=== PATIENT | male | born 1940 | race Caucasian/White ===

== ENCOUNTER 2019-09-24 19:44 | Observation (INO) ==
[2019-09-24 20:51] LABS: Basophils % 0.5 %; Eosinophils # 0.1 K/mcL (0.0-0.6); Eosinophils % 0.8 %; Hematocrit 26.9 % (37.5-50.1); Hemoglobin 9.1 g/dL (12.9-16.9); Immature Granulocytes % 0.8 % (0-4); Lymphocytes % 12.3 %; Mean Corpuscular HGB Conc 33.8 g/dL (31.6-35.5); Mean Corpuscular Hemoglobin 31.6 pg (28.0-33.3); Mean Corpuscular Volume 93.4 fL (83.0-100.0); Mean Platelet Volume 9.7 fL (9.4-12.4); Monocytes # 0.8 K/mcL (0.0-1.3); Monocytes % 10.3 %; Platelet Count 282 K/mcL (140-400); Red Blood Count 2.88 M/mcL (4.19-5.50); Red Cell Distribution Width 14.8 % (11.5-14.5); Segmented Neutrophils % 75.3 %; White Blood Count 7.9 K/mcL (4.3-11.1)
[2019-09-24 21:01] LABS: INR 1.9; Prothrombin Time 21.6 Seconds (9.4-12.1)
[2019-09-24 21:04] LABS: Activated Partial Thrombo Time 34.9 Seconds (26.0-36.0)
[2019-09-24 21:11] LABS: Alanine Aminotransferase 14 Units/L (7-52); Albumin 3.6 g/dL (3.5-5.7); Albumin/Globulin Ratio 1.4 (1.1-2.2); Alkaline Phosphatase 186 Units/L (34-104); Aspartate Amino Transferase 19 Units/L (13-39); BUN/Creatinine Ratio 15 (6-26); Bilirubin,Total 0.6 mg/dL (0.3-1.0); Blood Urea Nitrogen 47 mg/dL (8-23); Calcium 9.8 mg/dL (8.6-10.3); Carbon Dioxide 20 mEq/L (23-29); Chloride 98 mEq/L (98-107); Globulin 2.6 g/dL (2.4-3.5); Glucose 166 mg/dL (70-105); Osmolality,Calculated 282 (280-300); Potassium 5.4 mEq/L (3.5-5.1); Sodium 128 mEq/L (136-145); Total Protein 6.2 g/dL (6.4-8.9); Troponin I < 0.03 ng/mL (< 0.04); eGFR For African Americans 23 (> 60); eGFR For Non-African Americans 19 (> 60)
[2019-09-25] MEDS ORDERED: Naloxone 0.4 MG/ML INJ IVP PRN (00:58)
[2019-09-25] MEDS ORDERED: 0.9 % Sodium Chloride 500 ML IVC ONE ×2 (01:01→03:50)
[2019-09-25] MEDS: 0.9 % Sodium Chloride 1,000 ML IVC SCH (01:44)
[2019-09-25 02:02] LABS: Basophils # 0.1 K/mcL (0.0-0.2); Basophils % 0.7 %; Eosinophils # 0.1 K/mcL (0.0-0.6); Eosinophils % 1.1 %; Hematocrit 26.5 % (37.5-50.1); Hemoglobin 8.8 g/dL (12.9-16.9); Lymphocytes % 12.7 %; Mean Corpuscular HGB Conc 33.2 g/dL (31.6-35.5); Mean Corpuscular Hemoglobin 31.1 pg (28.0-33.3); Mean Corpuscular Volume 93.6 fL (83.0-100.0); Mean Platelet Volume 9.7 fL (9.4-12.4); Monocytes # 0.9 K/mcL (0.0-1.3); Monocytes % 11.5 %; Neutrophils # 5.9 K/mcL (1.6-8.9); Platelet Count 263 K/mcL (140-400); Red Blood Count 2.83 M/mcL (4.19-5.50); Red Cell Distribution Width 14.7 % (11.5-14.5)
[2019-09-25 02:21] LABS: Albumin 3.4 g/dL (3.5-5.7); Albumin/Globulin Ratio 1.3 (1.1-2.2); Bilirubin,Total 0.5 mg/dL (0.3-1.0); Calcium 9.4 mg/dL (8.6-10.3); Globulin 2.6 g/dL (2.4-3.5); Potassium 5.3 mEq/L (3.5-5.1)
[2019-09-25] MEDS ORDERED: Dextrose Gel 15 GM/37.5 ML TUBE PO PRN ×2 (03:17)
[2019-09-25] MEDS ORDERED: D5% in Water 1,000 ML IVC PRN (03:17)
[2019-09-25] MEDS ORDERED: *HR* Dextrose 50 % in Water (Vial) 50 ML VIAL IVP PRN (03:17)
[2019-09-25] MEDS ORDERED: *HR* OxyCODONE Immed Rel 5 MG TABLET PO PRN (03:18)
[2019-09-25] MEDS ORDERED: Ondansetron ODT 4 MG TAB.RAPDIS SL PRN (03:18)
[2019-09-25 04:41] LABS: Bilirubin,Urine Negative (Negative); Blood,Urine Negative (Negative); Clarity,Urine Clear (Clear); Color,Urine Light-Yellow (Yellow); Glucose,Urine (UA) Normal (Normal); Ketones,Urine Negative (Negative); Leukocyte Esterase,Urine Negative (Negative); Mucus,Urine Few per lpf (None-Few); Nitrite,Urine Negative (Negative); PH,Urine 5.5 pH Units (5.0-8.0); Protein,Urine 30 mg/dL (Neg-Trace); RBC,Urine 0-3 per hpf (0-3); Specific Gravity,Urine 1.012 (1.010-1.025); Squamous Epithelial Cell,Urine Few per hpf (None-Few); Urobilinogen,Urine Normal (Normal); WBC,Urine 15-30 per hpf (0-3)
[2019-09-25] MEDS ORDERED: *HR* Rivaroxaban 10 MG TABLET PO SCH (09:00)
[2019-09-25] MEDS: Insulin LISPRO 300 UNITS/3 ML VIAL SQ SCH ×4 (09:52→20:56)
[2019-09-25] MEDS: Aspirin Enteric Coated 81 MG Tablet PO SCH (09:52)
[2019-09-25] MEDS: amLODIPine 5 MG TABLET PO SCH (09:52)
[2019-09-25] MEDS: Albumin 25% 25gram/100mL 25 GM/100 ML IV.SOLN IVPB SCH (15:35)
[2019-09-25] MEDS: Mirtazapine 15 MG TABLET PO SCH (21:01)
[2019-09-25] MEDS: Ondansetron ODT 4 MG TAB.RAPDIS SL SCH (21:01)
[2019-09-26] MEDS: Albumin 25% 25gram/100mL 25 GM/100 ML IV.SOLN IVPB SCH ×4 (00:37→23:52)
[2019-09-26 06:39] LABS: Basophils % 0.5 %; Eosinophils # 0.1 K/mcL (0.0-0.6); Eosinophils % 1.8 %; Hematocrit 25.8 % (37.5-50.1); Hemoglobin 8.5 g/dL (12.9-16.9); Immature Granulocytes % 0.9 % (0-4); Lymphocytes # 0.8 K/mcL (0.6-4.6); Lymphocytes % 10.5 %; Mean Corpuscular HGB Conc 32.9 g/dL (31.6-35.5); Mean Corpuscular Hemoglobin 30.9 pg (28.0-33.3); Mean Corpuscular Volume 93.8 fL (83.0-100.0); Monocytes # 0.9 K/mcL (0.0-1.3); Monocytes % 11.4 %; Neutrophils # 5.8 K/mcL (1.6-8.9); Platelet Count 234 K/mcL (140-400); Red Blood Count 2.75 M/mcL (4.19-5.50); Red Cell Distribution Width 14.8 % (11.5-14.5); Segmented Neutrophils % 74.9 %; White Blood Count 7.8 K/mcL (4.3-11.1)
[2019-09-26 06:58] LABS: Potassium 5.4 mEq/L (3.5-5.1)
[2019-09-26] MEDS: Aspirin Enteric Coated 81 MG Tablet PO SCH (08:34)
[2019-09-26] MEDS: amLODIPine 5 MG TABLET PO SCH (08:34)
[2019-09-26] MEDS: Ondansetron ODT 4 MG TAB.RAPDIS SL SCH ×3 (08:34→21:22)
[2019-09-26] MEDS: Insulin LISPRO 300 UNITS/3 ML VIAL SQ SCH ×4 (08:36→21:20)
[2019-09-26 09:32] LABS: Hyaline Casts,Urine Few per lpf (None Seen); RBC,Urine 0-3 per hpf (0-3); Squamous Epithelial Cell,Urine Few per hpf (None-Few)
[2019-09-26] MEDS: 0.9 % Sodium Chloride 1,000 ML IVC SCH (09:37)
[2019-09-26] MEDS: *HR* Heparin 5,000 UNIT/ML VIAL SQ SCH ×2 (13:46→21:22)
[2019-09-26] MEDS: Mirtazapine 15 MG TABLET PO SCH (21:22)
[2019-09-27] MEDS ORDERED: Acetaminophen IV 1,000 MG/100 ML BAG IVPB ONE (03:59)
[2019-09-27] MEDS: *HR* Heparin 5,000 UNIT/ML VIAL SQ SCH (05:04)
[2019-09-27 07:23] LABS: Basophils % 0.6 %; Eosinophils # 0.1 K/mcL (0.0-0.6); Eosinophils % 1.8 %; Hematocrit 25.8 % (37.5-50.1); Hemoglobin 8.4 g/dL (12.9-16.9); Lymphocytes # 0.9 K/mcL (0.6-4.6); Lymphocytes % 12.7 %; Mean Corpuscular HGB Conc 32.6 g/dL (31.6-35.5); Mean Corpuscular Hemoglobin 30.7 pg (28.0-33.3); Mean Corpuscular Volume 94.2 fL (83.0-100.0); Mean Platelet Volume 9.7 fL (9.4-12.4); Monocytes # 0.8 K/mcL (0.0-1.3); Monocytes % 11.7 %; Platelet Count 203 K/mcL (140-400); Red Blood Count 2.74 M/mcL (4.19-5.50); Red Cell Distribution Width 14.8 % (11.5-14.5); Segmented Neutrophils % 72.2 %; White Blood Count 6.9 K/mcL (4.3-11.1)
[2019-09-27] MEDS: amLODIPine 5 MG TABLET PO SCH (07:49)
[2019-09-27] MEDS: Aspirin Enteric Coated 81 MG Tablet PO SCH (07:49)
[2019-09-27] MEDS: Albumin 25% 25gram/100mL 25 GM/100 ML IV.SOLN IVPB SCH ×3 (07:50→23:16)
[2019-09-27] MEDS: Ondansetron ODT 4 MG TAB.RAPDIS SL SCH ×3 (07:50→20:39)
[2019-09-27] MEDS: Insulin LISPRO 300 UNITS/3 ML VIAL SQ SCH ×4 (07:50→22:23)
[2019-09-27 08:08] LABS: Albumin 3.9 g/dL (3.5-5.7); Calcium 9.3 mg/dL (8.6-10.3); Phosphorous 3.2 mg/dL (2.7-4.5); Potassium 5.3 mEq/L (3.5-5.1); Uric Acid 10.5 mg/dL (2.3-7.6)
[2019-09-27] MEDS ORDERED: Tolvaptan 15 MG TABLET PO ONE (08:35)
[2019-09-27] MEDS: *HR* Rivaroxaban 15 MG TABLET PO SCH (17:05)
[2019-09-27] MEDS: Mirtazapine 15 MG TABLET PO SCH (20:39)
[2019-09-28 02:32] LABS: Calcium 9.6 mg/dL (8.6-10.3)
[2019-09-28 02:37] LABS: % Iron Saturation 11 % (20-55); Iron 25 mcg/dL (65-175); Transferrin 157 mg/dL (203-362)
[2019-09-28 02:52] LABS: Ferritin 223 ng/mL (20-250)
[2019-09-28 02:57] LABS: Folate 12.3 ng/mL (3.0-16.0)
[2019-09-28] MEDS ORDERED: Iron Sucrose Complex 400 MG in 0.9 % Sodium Chloride 250 ML IVPB ONE (07:29)
[2019-09-28] MEDS: Ondansetron ODT 4 MG TAB.RAPDIS SL SCH ×3 (08:53→21:39)
[2019-09-28] MEDS: Albumin 25% 25gram/100mL 25 GM/100 ML IV.SOLN IVPB SCH (08:53)
[2019-09-28] MEDS: amLODIPine 5 MG TABLET PO SCH (08:53)
[2019-09-28] MEDS: Aspirin Enteric Coated 81 MG Tablet PO SCH (08:53)
[2019-09-28] MEDS: Insulin LISPRO 300 UNITS/3 ML VIAL SQ SCH ×4 (08:54→20:46)
[2019-09-28] MEDS: *HR* Rivaroxaban 15 MG TABLET PO SCH (16:51)
[2019-09-28] MEDS: Mirtazapine 15 MG TABLET PO SCH (21:38)
[2019-09-29 06:20] LABS: Calcium 9.5 mg/dL (8.6-10.3); Potassium 5.2 mEq/L (3.5-5.1)
[2019-09-29] MEDS: Insulin LISPRO 300 UNITS/3 ML VIAL SQ SCH ×2 (08:01→11:45)
[2019-09-29 10:58] VITALS: BP 118/53
[2019-09-29] MEDS: Ondansetron ODT 4 MG TAB.RAPDIS SL SCH ×2 (11:44→15:17)
[2019-09-29] MEDS: Aspirin Enteric Coated 81 MG Tablet PO SCH (11:44)
[2019-09-29] MEDS: amLODIPine 5 MG TABLET PO SCH (11:45)
== END 2019-09-29 17:27 | disposition home or self-care (01) ==
LOC: 3BNU 19:44 → EMEROOARM 19:44 → SUATTDRO 09-25 → 2ANU 09-25 00:03 → SUATTDRO 09-25 14:59
PROVIDERS: ADMIT Internal Medicine; ATTEND Internal Medicine